=== PATIENT | female | born 1975 | race Caucasian/White ===

== ENCOUNTER 2020-10-26 15:46 | Observation (INO) | payer OTHER ==
[~2020-10-26] VITALS: Ht 149.9 cm; Wt 52.2 kg
[2020-10-26 20:50] LABS: HEMOGLOBIN 9.7 gm/dl (12.3-15.3); RED BLOOD COUNT 3.15 M/UL (4.00-5.10); WHITE BLOOD COUNT 5.4 K/UL (4.5-11.0)
[2020-10-26 21:06] LABS: BUN/CREATININE RATIO 32 (0-10)
[2020-10-27] MEDS ORDERED: NEURONTIN800 MG PO (09:30)
[2020-10-27] MEDS ORDERED: OXYCODONE HCL5 MG PO (09:31)
[2020-10-27] MEDS ORDERED: LANTUS100 UNIT/1 SC ×2 (09:32→09:33)
[2020-10-27] MEDS ORDERED: HUMALOG100 UNIT/1 SC (09:33)
[2020-10-27] MEDS ORDERED: PROTONIX20 MG PO (09:34)
== END 2020-10-27 18:06 | disposition home or self-care (01) ==
LOC: ER1 15:46 → CDU 21:10
PROVIDERS: Emergency Medicine; ADMIT Internal Medicine
DX: S72.115A Nondisplaced fracture of greater trochanter of left femur, initial encounter for closed fracture (principal); W18.30XA Fall on same level, unspecified, initial encounter; H54.7 Unspecified visual loss; Z20.822 Contact with and (suspected) exposure to COVID-19; E11.319 Type 2 diabetes mellitus with unspecified diabetic retinopathy without macular edema; E11.40 Type 2 diabetes mellitus with diabetic neuropathy, unspecified; I10 Essential (primary) hypertension; R26.9 Unspecified abnormalities of gait and mobility; F17.210 Nicotine dependence, cigarettes, uncomplicated; E11.36 Type 2 diabetes mellitus with diabetic cataract; H26.9 Unspecified cataract; Y93.89 Activity, other specified; Y92.89 Other specified places as the place of occurrence of the external cause; Y99.8 Other external cause status; Z88.8 Allergy status to other drugs, medicaments and biological substances; Z99.3 Dependence on wheelchair; Z98.1 Arthrodesis status; Z90.710 Acquired absence of both cervix and uterus
CPT/HCPCS: 71045; 73552; 73564; 73590; 73718; 80048; 85025; 93005; 96374; 99284; G0378; J2270; J2405; U0002

== ENCOUNTER 2021-03-08 22:26 | Emergency (ER) | payer OTHER ==
[~2021-03-08 22:26] MED LIST: HUMALOG100 UNIT/1 SC; LANTUS100 UNIT/1 SC; NEURONTIN800 MG PO; OXYCODONE HCL5 MG PO; PROTONIX20 MG PO
[2021-03-08 23:02] LABS: HEMOGLOBIN 12.6 gm/dl (12.3-15.3); RED BLOOD COUNT 3.99 M/UL (4.00-5.10); WHITE BLOOD COUNT 6.5 K/UL (4.5-11.0)
[2021-03-08 23:22] LABS: BUN/CREATININE RATIO 27 (0-10)
[2021-03-09] MEDS ORDERED: PHENERGAN 25 MG25 M1 PO (03:13)
[2021-03-09] MEDS ORDERED: OMNICEF 300 MG300 MG PO (03:13)
[2021-03-09] MEDS ORDERED: METRONIDAZOLE500 MG PO (03:13)
[2021-03-09] MEDS ORDERED: HYDROCODON-ACE1 EAC4 PO (03:13)
== END 2021-03-09 03:37 | disposition home or self-care (01) ==
LOC: ER1 22:26
PROVIDERS: Physician Assistant Medical
DX: R10.9 Unspecified abdominal pain (principal); R11.0 Nausea; E11.9 Type 2 diabetes mellitus without complications; Z79.4 Long term (current) use of insulin; Z90.710 Acquired absence of both cervix and uterus; Z88.5 Allergy status to narcotic agent; F17.210 Nicotine dependence, cigarettes, uncomplicated; Z88.8 Allergy status to other drugs, medicaments and biological substances
CPT/HCPCS: 80053; 81001; 82009; 82803; 82962; 83605; 85025; 96374; 96375; 96376; 99284; J2270; J2405

== ENCOUNTER → 2021-03-11 | Outpatient (CLI) | payer OTHER ==
[~2021-03-11] MED LIST changes: +HYDROCODON-ACE1 EAC4 PO; +METRONIDAZOLE500 MG PO; +OMNICEF 300 MG300 MG PO; +PHENERGAN 25 MG25 M1 PO
[2021-03-11 10:59] LABS: HEMOGLOBIN 12.7 gm/dl (12.3-15.3); RED BLOOD COUNT 4.08 M/UL (4.00-5.10); WHITE BLOOD COUNT 6.6 K/UL (4.5-11.0)
[2021-03-11 11:10] LABS: BUN/CREATININE RATIO 25 (0-10)
[2021-03-12 06:10] LABS: HEMOGLOBIN A1C 8.5 % (4.8-5.6)
== END ==
LOC: MRI 10:26
PROVIDERS: Family Medicine Addiction Medicine
DX: H47.10 Unspecified papilledema (principal)
CPT/HCPCS: 36415; 70553; 80048; 83036; 85025; 85652; A9577

== ENCOUNTER 2021-03-14 22:41 | Emergency (ER) | payer OTHER ==
[2021-03-15 01:03] LABS: HEMOGLOBIN 13.5 gm/dl (12.3-15.3); RED BLOOD COUNT 4.37 M/UL (4.00-5.10); WHITE BLOOD COUNT 8.9 K/UL (4.5-11.0)
[2021-03-15 01:24] LABS: BUN/CREATININE RATIO 22 (0-10)
[2021-03-15] MEDS ORDERED: PHENERGAN 25 MG25 M1 PO (03:22)
[2021-03-15] MEDS ORDERED: MOBIC15 MG PO (03:22)
[2021-03-15] MEDS ORDERED: K-TAB ER20 MEQ PO (03:24)
[2021-03-15] MEDS ORDERED: DIFLUCAN150 MG PO (03:32)
== END 2021-03-15 03:40 | disposition home or self-care (01) ==
LOC: ER1 22:41
PROVIDERS: Physician Assistant
DX: E11.65 Type 2 diabetes mellitus with hyperglycemia (principal); E87.6 Hypokalemia; F17.200 Nicotine dependence, unspecified, uncomplicated; Z79.4 Long term (current) use of insulin; I10 Essential (primary) hypertension; Z88.8 Allergy status to other drugs, medicaments and biological substances
CPT/HCPCS: 74018; 80053; 81001; 82962; 83690; 85025; 96374; 96375; 99284; J2270; J2550

== ENCOUNTER 2021-03-31 17:10 | Emergency (ER) | payer OTHER ==
[~2021-03-31 17:10] MED LIST changes: +DIFLUCAN150 MG PO; +K-TAB ER20 MEQ PO; +MOBIC15 MG PO
== END 2021-03-31 19:10 | disposition left against medical advice (07) ==
LOC: ER1 17:10
DX: Z53.21 Procedure and treatment not carried out due to patient leaving prior to being seen by health care provider (principal)

== ENCOUNTER 2021-04-21 23:22 | Emergency (ER) | payer OTHER ==
[2021-04-22 00:05] LABS: HEMOGLOBIN 10.2 gm/dl (12.3-15.3); RED BLOOD COUNT 3.37 M/UL (4.00-5.10); WHITE BLOOD COUNT 6.3 K/UL (4.5-11.0)
[2021-04-22 00:27] LABS: BUN/CREATININE RATIO 19 (0-10)
[2021-04-22 06:00] LABS: BUN/CREATININE RATIO 20 (0-10)
[2021-04-22 11:33] LABS: HEMOGLOBIN 9.9 gm/dl (12.3-15.3); RED BLOOD COUNT 3.29 M/UL (4.00-5.10); WHITE BLOOD COUNT 5.4 K/UL (4.5-11.0)
[2021-04-22 11:54] LABS: BUN/CREATININE RATIO 18 (0-10)
== END 2021-04-22 12:38 | disposition home or self-care (01) ==
LOC: ER1 23:22
PROVIDERS: Family Medicine; Physician Assistant
DX: E87.6 Hypokalemia (principal); R10.84 Generalized abdominal pain; F17.210 Nicotine dependence, cigarettes, uncomplicated; E11.9 Type 2 diabetes mellitus without complications; Z79.4 Long term (current) use of insulin; Z88.8 Allergy status to other drugs, medicaments and biological substances
CPT/HCPCS: 80048; 80053; 83690; 83735; 83880; 85025; 96374; 96375; 96376; 99284; J1885; J2270; J2550; J3480; Q9967

== ENCOUNTER 2021-04-27 22:24 | Emergency (ER) | payer OTHER ==
[~2021-04-27 22:24] MED LIST changes: -HUMALOG100 UNIT/1 SC; +HUMALOG100 UNIT/3 SQ; +LANTUS SOL100 UNIT/1 SQ; -LANTUS100 UNIT/1 SC; +LANTUS100 UNIT/1 SQ
[2021-04-27 23:24] LABS: HEMOGLOBIN 11.8 gm/dl (12.3-15.3); RED BLOOD COUNT 3.89 M/UL (4.00-5.10)
[2021-04-28 00:03] LABS: BUN/CREATININE RATIO 16 (0-10)
[2021-04-28 01:36] LABS: HEMOGLOBIN 11.1 gm/dl (12.3-15.3); RED BLOOD COUNT 3.65 M/UL (4.00-5.10); WHITE BLOOD COUNT 5.3 K/UL (4.5-11.0)
[2021-04-28 05:55] LABS: BUN/CREATININE RATIO 18 (0-10)
[2021-04-28] MEDS ORDERED: PHENERGAN 25 MG25 M1 PO (06:32)
== END 2021-04-28 06:55 | disposition home or self-care (01) ==
LOC: ER1 22:24
PROVIDERS: Family Medicine
DX: K52.9 Noninfective gastroenteritis and colitis, unspecified (principal); E87.6 Hypokalemia; R11.2 Nausea with vomiting, unspecified
CPT/HCPCS: 80048; 80053; 82550; 82553; 83605; 83690; 83735; 84484; 85025; 85610; 96365; 96366; 96375; 96376; 99284; J2270; J2550; J3480; Q9967

== ENCOUNTER 2021-04-30 00:12 | Observation (INO) | payer OTHER ==
[~2021-04-30] VITALS: Ht 149.9 cm; Wt 54.4 kg
[2021-04-30 02:08] LABS: HEMOGLOBIN 11.3 gm/dl (12.3-15.3); RED BLOOD COUNT 3.69 M/UL (4.00-5.10); WHITE BLOOD COUNT 4.2 K/UL (4.5-11.0)
[2021-04-30 02:28] LABS: BUN/CREATININE RATIO 17 (0-10)
[2021-05-01 06:37] LABS: HEMOGLOBIN 9.5 gm/dl (12.3-15.3); WHITE BLOOD COUNT 4.8 K/UL (4.5-11.0)
[2021-05-01 06:40] LABS: RED BLOOD COUNT 3.14 M/UL (4.00-5.10)
[2021-05-01 06:56] LABS: BUN/CREATININE RATIO 16 (0-10)
[2021-05-01] MEDS ORDERED: FLAGYL 250 MG250 MG PO (15:33)
[2021-05-01] MEDS ORDERED: CIPRO500 MG PO (15:33)
--- NOTE | 2021-05-01 16:51 | NUR ---
05/01/21 5069 DISCUSSED WITH LAWANDA MINAYAGOLD PLATER UNABLE TO GET IN TOUCH WITH FAMILY TO COME GET HER, HE OK'D [facility] TO COME TAKE PATIENT HOME, PT AGREEABLE WITH THIS
== END 2021-05-01 17:54 | disposition home or self-care (01) ==
LOC: ER1 00:12 → CDU 06:08 → CCU 06:08 → CDU 06:08 → CCU 10:12
PROVIDERS: Internal Medicine; Physician Assistant; ADMIT Internal Medicine
DX: K52.9 Noninfective gastroenteritis and colitis, unspecified (principal); E11.42 Type 2 diabetes mellitus with diabetic polyneuropathy; E11.43 Type 2 diabetes mellitus with diabetic autonomic (poly)neuropathy; E83.42 Hypomagnesemia; I10 Essential (primary) hypertension; F17.210 Nicotine dependence, cigarettes, uncomplicated; E88.09 Other disorders of plasma-protein metabolism, not elsewhere classified; R18.8 Other ascites; Z79.4 Long term (current) use of insulin; Z20.822 Contact with and (suspected) exposure to COVID-19; Z90.49 Acquired absence of other specified parts of digestive tract
CPT/HCPCS: 36415; 80048; 80053; 81001; 82962; 83036; 83690; 83735; 84132; 85025; 93971; 96374; 96375; 96376; 99285; C9113; G0378; J1170; J1650; J1956; J2270; J2550; J3480; Q9967; U0002

== ENCOUNTER 2021-05-03 03:51 | Emergency (ER) | payer OTHER ==
[~2021-05-03 03:51] MED LIST changes: +CIPRO500 MG PO; +FLAGYL 250 MG250 MG PO
[2021-05-03 04:14] LABS: WHITE BLOOD COUNT 4.6 K/UL (4.5-11.0)
[2021-05-03 04:20] LABS: HEMOGLOBIN 11.7 gm/dl (12.3-15.3); RED BLOOD COUNT 3.84 M/UL (4.00-5.10)
[2021-05-03 04:41] LABS: BUN/CREATININE RATIO 14 (0-10)
[2021-05-03] MEDS ORDERED: ACIDOPHILUS PR1 EAC2 PO (05:59)
[2021-05-03] MEDS ORDERED: PROMETHAZINE HC25 MG PR (05:59)
== END 2021-05-03 08:15 | disposition home or self-care (01) ==
LOC: ER1 03:51
PROVIDERS: Physician Assistant
DX: R10.9 Unspecified abdominal pain (principal); E11.9 Type 2 diabetes mellitus without complications; Z90.710 Acquired absence of both cervix and uterus; Z88.8 Allergy status to other drugs, medicaments and biological substances; Z90.49 Acquired absence of other specified parts of digestive tract; F17.210 Nicotine dependence, cigarettes, uncomplicated
CPT/HCPCS: 80053; 81001; 82962; 83690; 85025; 93005; 96374; 96375; 99284; J1170; J2550; J3480; Q9967

== ENCOUNTER 2021-05-06 00:26 | Emergency (ER) | payer OTHER ==
[~2021-05-06 00:26] MED LIST changes: +ACIDOPHILUS PR1 EAC2 PO; +PROMETHAZINE HC25 MG PR
[2021-05-06 00:54] LABS: HEMOGLOBIN 10.1 gm/dl (12.3-15.3)
[2021-05-06 00:55] LABS: RED BLOOD COUNT 3.33 M/UL (4.00-5.10); WHITE BLOOD COUNT 6.2 K/UL (4.5-11.0)
[2021-05-06 01:21] LABS: BUN/CREATININE RATIO 15 (0-10)
[2021-05-06] MEDS ORDERED: IBUPROFEN600 MG PO (04:08)
[2021-05-06] MEDS ORDERED: GLUCOPHAGE 500500 MG PO (04:12)
== END 2021-05-06 05:00 | disposition home or self-care (01) ==
LOC: ER1 00:26
DX: R07.9 Chest pain, unspecified (principal); M79.602 Pain in left arm; E11.65 Type 2 diabetes mellitus with hyperglycemia; I10 Essential (primary) hypertension; Z87.19 Personal history of other diseases of the digestive system; F17.210 Nicotine dependence, cigarettes, uncomplicated; Z88.8 Allergy status to other drugs, medicaments and biological substances; Z79.82 Long term (current) use of aspirin
CPT/HCPCS: 71046; 80053; 82550; 82553; 82962; 84484; 85025; 93005; 96374; 96375; 99285; J1885; J2765

== ENCOUNTER 2021-05-08 07:42 | Inpatient (IN) | payer OTHER ==
[~2021-05-08] VITALS: Ht 149.9 cm; Wt 54.4 kg
[~2021-05-08 07:42] MED LIST changes: +GLUCOPHAGE 500500 MG PO; +IBUPROFEN600 MG PO
[2021-05-08 10:07] LABS: GLUCOSE,CSF 206 mg/dL (50-80); TOTAL PROTEIN,CSF 42 mg/dL (20-45)
[2021-05-08 10:20] LABS: WBC (AUTOMATED 1 10^3 (0-5); WBC (AUTOMATED 2 10^3 (0-5)
[2021-05-08 14:54] LABS: HEMOGLOBIN 10.3 gm/dl (12.3-15.3); RED BLOOD COUNT 3.38 M/UL (4.00-5.10); WHITE BLOOD COUNT 5.7 K/UL (4.5-11.0)
[2021-05-08 15:29] LABS: BUN/CREATININE RATIO 16 (0-10)
--- NOTE | 2021-05-08 18:21 | NUR ---
RECEIVED PATIENT TO 5122 VIA W/C TRANSPORT. PATIENT AAOX3. RESP JUAN AND NON LABORED. LUNGS CLEAR. ABD SOFT AND NON DISTENDED. BOWEL SOUNDS +X4. SKIN WDI. BANDAID NOTED TO LOWER LUMBAR R/T RECENT SPINAL TAP. PATIENT C/O HEADACHE 10/15. JUST RECEIVED VICODIN AND DILAUDID IN OBS. #20 IV TO RIGHT HAND INTACT. NS@125 STARTED. NO OTHER C/O NOTED. NO DISTRESS NOTED. WCTM.
[2021-05-09 13:15] LABS: CSF IGG INDEX 0.6 (0.0-0.7); IMMUNOGLOBULIN G, QN, SERUM 227 mg/dL (586-1602)
--- NOTE | 2021-05-10 17:07 | NUR ---
PATIENTS BS IS 59. PATIENT IS AA0X3. FEEDING SELF DINNER. ADVISED PATIENT I WOULD GIVE HER GLUCOSE GEL OR D50 IVP AND PATIENT REFUSED. PATIENT REQUESTED 2 APPLE JUICES.
--- NOTE | 2021-05-10 17:38 | NUR ---
REPEAT BS 81. PATIENT AAOX3.
--- NOTE | 2021-05-10 23:25 | NUR ---
APPROX 2030 WHEN ADMINSTERING PT MEDICATIONS. PT ASKED FOR PAIN MEDICATIONS. I OFFERED HYDROCODONE AND FIORCET TO PT. PT REFUSED BOTH OF THESE AND STATED SHE NEEDED SOMETHING STONGER. ALREADY IN REPORT GIVEN AT [facility] WAS TOLD HAD D/C TORDOL AND DILAUDID TODAY. REMINDED PT OF THIS AND SHE WANTED ME TO CALL ANOTHER DR. I TOLD HER I COULD CALL STACEY LE. APROX [address] HUGO NOTIFIED ABOUT PT AND STATED ABOVE AND HE STATES SHE WILL NEED TO SPEAK WITH HER PRIMARY MD ABOUT HER PAIN MEDICATIONS. APROX 2138 WENT AND NOTIFIED PT ABOUT THIS AND SHE STATED SHE WOULD TAKE THE HYDROCODONE PILL.
[2021-05-11 04:21] LABS: HEMOGLOBIN 9.1 gm/dl (12.3-15.3); RED BLOOD COUNT 3.03 M/UL (4.00-5.10); WHITE BLOOD COUNT 5.5 K/UL (4.5-11.0)
[2021-05-11 04:35] LABS: BUN/CREATININE RATIO 40 (0-10)
--- NOTE | 2021-05-12 09:56 | NUR ---
informed Dr Goins of neurology will be available on wednesday. he acknowledged
--- NOTE | 2021-05-12 15:07 | NUR ---
reported to dr. peace patient b/p 203/ and retaken manually of 199/106 amd received order to d/c the IV. and retake b/p again.
--- NOTE | 2021-05-12 16:57 | NUR ---
reported to dr. peace patient b/p elevated and pateint asking for pain medicine. dr. peace acknowledged and will order iv pain medicine
[2021-05-12 18:11] LABS: MYELIN BASIC PROTEIN, CSF 4.6 ng/mL (0.0-3.7)
[2021-05-14] MEDS ORDERED: AMITRIPTYLINE H25 MG PO (12:50)
[2021-05-14] MEDS ORDERED: TAB-A-VITE TA400 MC1 PO (12:50)
[2021-05-14] MEDS ORDERED: VITAMIN D21250 MCG PO (12:50)
== END 2021-05-14 15:32 | disposition home or self-care (01) | DRG 103 ==
LOC: RAD 07:42 → M/S 07:42 → RAD 08:00 → CCU 13:49 → M/S 16:03 → RAD 16:04 → M/S 16:04
PROVIDERS: Internal Medicine; Psychiatry & Neurology Neurology; ADMIT Internal Medicine Infectious Disease
PROC: 009U3ZX Drainage of Spinal Canal, Percutaneous Approach, Diagnostic (ICD-10-PCS; principal; 2021-05-08)
PROC: B01B1ZZ Fluoroscopy of Spinal Cord using Low Osmolar Contrast (ICD-10-PCS; 2021-05-08)
DX: G97.1 Other reaction to spinal and lumbar puncture (principal); Y84.4 Aspiration of fluid as the cause of abnormal reaction of the patient, or of later complication, without mention of misadventure at the time of the procedure; G35 Multiple sclerosis; G43.909 Migraine, unspecified, not intractable, without status migrainosus; Z20.822 Contact with and (suspected) exposure to COVID-19; I10 Essential (primary) hypertension; F17.210 Nicotine dependence, cigarettes, uncomplicated; F32.A Depression, unspecified; E11.42 Type 2 diabetes mellitus with diabetic polyneuropathy; D50.9 Iron deficiency anemia, unspecified; K66.0 Peritoneal adhesions (postprocedural) (postinfection); E11.43 Type 2 diabetes mellitus with diabetic autonomic (poly)neuropathy; E11.65 Type 2 diabetes mellitus with hyperglycemia; K31.84 Gastroparesis; E11.319 Type 2 diabetes mellitus with unspecified diabetic retinopathy without macular edema; E87.6 Hypokalemia; E88.09 Other disorders of plasma-protein metabolism, not elsewhere classified; E55.9 Vitamin D deficiency, unspecified; Z76.5 Malingerer [conscious simulation]; Z79.4 Long term (current) use of insulin; Z98.42 Cataract extraction status, left eye; Z98.41 Cataract extraction status, right eye; Z90.49 Acquired absence of other specified parts of digestive tract; Z90.710 Acquired absence of both cervix and uterus; Z80.0 Family history of malignant neoplasm of digestive organs; Z83.79 Family history of other diseases of the digestive system; Z88.8 Allergy status to other drugs, medicaments and biological substances; Z91.011 Allergy to milk products
CPT/HCPCS: 36415; 80048; 80053; 82040; 82607; 82728; 82746; 82784; 82945; 82962; 83540; 83550; 83735; 83873; 83916; 83970; 84100; 84132; 84157; 84443; 85025; 87015; 87070; 87116; 87205; 87210; 89051; 97116; 97161; G0378; J1170; J1885; J2550; J3475; J7070

== ENCOUNTER 2021-05-23 00:37 | Emergency (ER) | payer OTHER ==
[~2021-05-23 00:37] MED LIST changes: +AMITRIPTYLINE H25 MG PO; +MELOXICAM10 MG PO; +TAB-A-VITE TA400 MC1 PO; +VITAMIN D21250 MCG PO
[2021-05-23 02:12] LABS: HEMOGLOBIN 11.5 gm/dl (12.3-15.3); RED BLOOD COUNT 3.87 M/UL (4.00-5.10); WHITE BLOOD COUNT 5.5 K/UL (4.5-11.0)
[2021-05-23 02:41] LABS: BUN/CREATININE RATIO 19 (0-10)
== END 2021-05-23 04:40 | disposition home or self-care (01) ==
LOC: ER1 00:37
PROVIDERS: Physician Assistant
DX: N39.0 Urinary tract infection, site not specified (principal); R10.31 Right lower quadrant pain; F17.210 Nicotine dependence, cigarettes, uncomplicated; E11.9 Type 2 diabetes mellitus without complications; Z90.710 Acquired absence of both cervix and uterus
CPT/HCPCS: 80053; 81001; 82009; 82150; 82800; 83605; 83690; 84703; 85025; 87086; 96374; 99284; J1885

== ENCOUNTER 2021-06-02 13:39 | Emergency (ER) | payer OTHER ==
[2021-06-02 14:41] LABS: HEMOGLOBIN 11.6 gm/dl (12.3-15.3); RED BLOOD COUNT 3.96 M/UL (4.00-5.10); WHITE BLOOD COUNT 5.8 K/UL (4.5-11.0)
[2021-06-02 15:57] LABS: BUN/CREATININE RATIO 19 (0-10)
[2021-06-02] MEDS ORDERED: PYRIDIUM200 MG PO (16:34)
[2021-06-02] MEDS ORDERED: BENTYL 20MG TAB20 MG PO (16:34)
[2021-06-02] MEDS ORDERED: HYDROXYZINE HCL25 MG PO (16:34)
[2021-06-02] MEDS ORDERED: MOBIC7.5 MG PO (16:34)
== END 2021-06-02 16:56 | disposition home or self-care (01) ==
LOC: ER1 13:39
PROVIDERS: Student in an Organized Health Care Education/Training Program
DX: R10.9 Unspecified abdominal pain (principal); R10.817 Generalized abdominal tenderness; E11.9 Type 2 diabetes mellitus without complications; F17.210 Nicotine dependence, cigarettes, uncomplicated
CPT/HCPCS: 80053; 81001; 83690; 85025; 87086; 96372; 96374; 96375; 96376; 99284; J1885; J2270; J2550

== ENCOUNTER 2021-06-05 00:02 | Emergency (ER) | payer OTHER ==
[~2021-06-05 00:02] MED LIST changes: +BENTYL 20MG TAB20 MG PO; +HYDROXYZINE HCL25 MG PO; +MOBIC7.5 MG PO; +PYRIDIUM200 MG PO
== END 2021-06-05 12:05 | disposition home or self-care (01) ==
LOC: ER1 00:02
DX: M25.552 Pain in left hip (principal); E11.9 Type 2 diabetes mellitus without complications; F17.200 Nicotine dependence, unspecified, uncomplicated; Z88.8 Allergy status to other drugs, medicaments and biological substances; W06.XXXA Fall from bed, initial encounter; Y92.009 Unspecified place in unspecified non-institutional (private) residence as the place of occurrence of the external cause
CPT/HCPCS: 73502; 73700; 73721; 96372; 99284; J1885

== ENCOUNTER 2021-06-15 07:07 | Emergency (ER) | payer OTHER ==
[2021-06-15 08:28] LABS: HEMOGLOBIN 11.6 gm/dl (12.3-15.3); RED BLOOD COUNT 3.87 M/UL (4.00-5.10); WHITE BLOOD COUNT 5.2 K/UL (4.5-11.0)
[2021-06-15 08:54] LABS: BUN/CREATININE RATIO 22 (0-10)
[2021-06-15] MEDS ORDERED: KLOR-CON M2020 MEQ PO (09:52)
== END 2021-06-15 09:59 | disposition home or self-care (01) ==
LOC: ER1 07:07
PROVIDERS: Physician Assistant
DX: E87.6 Hypokalemia (principal); E11.65 Type 2 diabetes mellitus with hyperglycemia; R10.10 Upper abdominal pain, unspecified; G89.29 Other chronic pain; F17.200 Nicotine dependence, unspecified, uncomplicated; I10 Essential (primary) hypertension; Z79.4 Long term (current) use of insulin; Z88.8 Allergy status to other drugs, medicaments and biological substances
CPT/HCPCS: 71045; 74018; 80053; 83605; 83690; 83735; 85025; 93005; 96374; 96375; 99284; J0780; J1885

== ENCOUNTER 2021-06-22 07:07 | Emergency (ER) | payer OTHER ==
[~2021-06-22 07:07] MED LIST changes: +KLOR-CON M2020 MEQ PO
[2021-06-22 08:35] LABS: HEMOGLOBIN 11.8 gm/dl (12.3-15.3)
[2021-06-22 09:00] LABS: BUN/CREATININE RATIO 37 (0-10)
[2021-06-22] MEDS ORDERED: PHENERGAN 25 MG25 M1 PO (11:12)
[2021-06-22] MEDS ORDERED: MACROBID 100 M100 MG PO (12:26)
== END 2021-06-22 12:40 | disposition home or self-care (01) ==
LOC: ER1 07:07
PROVIDERS: Physician Assistant
DX: N39.0 Urinary tract infection, site not specified (principal); E87.6 Hypokalemia; I10 Essential (primary) hypertension; E11.9 Type 2 diabetes mellitus without complications; Z90.710 Acquired absence of both cervix and uterus; F17.200 Nicotine dependence, unspecified, uncomplicated; Z88.8 Allergy status to other drugs, medicaments and biological substances
CPT/HCPCS: 80053; 81001; 83690; 85025; 96374; 96375; 99284; J1885; J2270; J2550; J7030; Q9967

== ENCOUNTER 2021-06-23 19:03 | Emergency (ER) | payer OTHER ==
[~2021-06-23 19:03] MED LIST changes: +MACROBID 100 M100 MG PO
[2021-06-23 20:03] LABS: HEMOGLOBIN 10.3 gm/dl (12.3-15.3); WHITE BLOOD COUNT 4.8 K/UL (4.5-11.0)
[2021-06-23 20:04] LABS: RED BLOOD COUNT 3.46 M/UL (4.00-5.10)
[2021-06-23 20:56] LABS: BUN/CREATININE RATIO 24 (0-10)
[2021-06-24] MEDS ORDERED: PHENERGAN 25 MG25 M1 PO (04:36)
[2021-06-24] MEDS ORDERED: BENTYL 20MG TAB20 MG PO (04:36)
== END 2021-06-24 05:44 | disposition home or self-care (01) ==
LOC: ER1 19:03
PROVIDERS: Family Medicine
DX: R10.11 Right upper quadrant pain (principal); R11.2 Nausea with vomiting, unspecified; E11.9 Type 2 diabetes mellitus without complications; I10 Essential (primary) hypertension; F17.210 Nicotine dependence, cigarettes, uncomplicated; Z88.8 Allergy status to other drugs, medicaments and biological substances
CPT/HCPCS: 72129; 72132; 80053; 85025; 85652; 86140; 96374; 96375; 96376; 99284; J2270; J2765; J7030; Q9967

== ENCOUNTER 2021-07-02 18:57 | Emergency (ER) | payer OTHER ==
[2021-07-02 20:06] LABS: HEMOGLOBIN 10.2 gm/dl (12.3-15.3); RED BLOOD COUNT 3.42 M/UL (4.00-5.10); WHITE BLOOD COUNT 4.8 K/UL (4.5-11.0)
[2021-07-02 20:39] LABS: BUN/CREATININE RATIO 23 (0-10)
[2021-07-03 00:41] LABS: BUN/CREATININE RATIO 25 (0-10)
== END 2021-07-03 04:44 | disposition home or self-care (01) ==
LOC: ER1 18:57
PROVIDERS: Family Medicine
DX: E10.43 Type 1 diabetes mellitus with diabetic autonomic (poly)neuropathy (principal); K31.84 Gastroparesis; E87.6 Hypokalemia
CPT/HCPCS: 80048; 80053; 82150; 82550; 82553; 83605; 83690; 84484; 85025; 96374; 96375; 99284; J2270; J2550; J3480

== ENCOUNTER 2021-07-10 19:30 | Emergency (ER) | payer OTHER ==
[2021-07-10 21:28] LABS: HEMOGLOBIN 9.9 gm/dl (12.3-15.3); RED BLOOD COUNT 3.28 M/UL (4.00-5.10)
[2021-07-10 21:58] LABS: BUN/CREATININE RATIO 21 (0-10)
[2021-07-11] MEDS ORDERED: POTASSIUM CHLO20 ME1 PO (01:51)
== END 2021-07-11 02:35 | disposition home or self-care (01) ==
LOC: ER1 19:30
PROVIDERS: Family Medicine
DX: S06.9X9A Unspecified intracranial injury with loss of consciousness of unspecified duration, initial encounter (principal); S70.02XA Contusion of left hip, initial encounter; I10 Essential (primary) hypertension; E11.40 Type 2 diabetes mellitus with diabetic neuropathy, unspecified; E87.6 Hypokalemia; E11.65 Type 2 diabetes mellitus with hyperglycemia; F17.200 Nicotine dependence, unspecified, uncomplicated; Z87.81 Personal history of (healed) traumatic fracture; W20.8XXA Other cause of strike by thrown, projected or falling object, initial encounter; Y92.009 Unspecified place in unspecified non-institutional (private) residence as the place of occurrence of the external cause
CPT/HCPCS: 70450; 71045; 72125; 72131; 72192; 73502; 80053; 81001; 82550; 82553; 82962; 83735; 84484; 85025; 93005; 96374; 96375; 99284; J2270; J2405

== ENCOUNTER 2021-08-07 06:04 | Inpatient (IN) | payer OTHER ==
[~2021-08-07] VITALS: Ht 149.9 cm; Wt 49.9 kg
[~2021-08-07 06:04] MED LIST changes: +HUMALOG100 UNIT/3 SC; -HUMALOG100 UNIT/3 SQ; +POTASSIUM CHLO20 ME1 PO
[2021-08-07 06:31] LABS: HEMOGLOBIN 10.8 gm/dl (12.3-15.3); RED BLOOD COUNT 3.65 M/UL (4.00-5.10); WHITE BLOOD COUNT 5.5 K/UL (4.5-11.0)
[2021-08-07 06:59] LABS: BUN/CREATININE RATIO 22 (0-10)
[2021-08-07] MEDS ORDERED: LISINOPRIL10 MG PO (12:52)
[2021-08-08 01:54] LABS: HEMOGLOBIN 10.6 gm/dl (12.3-15.3); RED BLOOD COUNT 3.62 M/UL (4.00-5.10); WHITE BLOOD COUNT 6.2 K/UL (4.5-11.0)
[2021-08-08 02:19] LABS: BUN/CREATININE RATIO 19 (0-10)
[2021-08-09 06:54] LABS: BUN/CREATININE RATIO 15 (0-10)
[2021-08-10 07:59] LABS: HEMOGLOBIN 8.9 gm/dl (12.3-15.3)
[2021-08-10 08:00] LABS: BUN/CREATININE RATIO 14 (0-10)
[2021-08-10 08:13] LABS: RED BLOOD COUNT 3.12 M/UL (4.00-5.10); WHITE BLOOD COUNT 3.9 K/UL (4.5-11.0)
[2021-08-13 06:11] LABS: HEMOGLOBIN 8.8 gm/dl (12.3-15.3); RED BLOOD COUNT 2.96 M/UL (4.00-5.10); WHITE BLOOD COUNT 4.7 K/UL (4.5-11.0)
[2021-08-13 06:28] LABS: BUN/CREATININE RATIO 23 (0-10)
[2021-08-14 06:45] LABS: RED BLOOD COUNT 2.84 M/UL (4.00-5.10)
[2021-08-14 06:49] LABS: WHITE BLOOD COUNT 3.4 K/UL (4.5-11.0)
[2021-08-14] MEDS ORDERED: LANTUS SOL100 UNIT/1 SQ (15:36)
[2021-08-14] MEDS ORDERED: CATAPRES 0.1MG0.1 MG PO (17:11)
[2021-08-14] MEDS ORDERED: LISINOPRIL10 MG PO (17:11)
== END 2021-08-14 18:15 | disposition home or self-care (01) | DRG 74 ==
LOC: ER1 06:04 → CDU 09:18 → MED SURG 4 09:18 → CDU 09:18 → MED SURG 4 17:59
PROVIDERS: Family Medicine; Internal Medicine; Physician Assistant Medical; ADMIT Internal Medicine
DX: E11.43 Type 2 diabetes mellitus with diabetic autonomic (poly)neuropathy (principal); R44.3 Hallucinations, unspecified; E11.65 Type 2 diabetes mellitus with hyperglycemia; Z20.822 Contact with and (suspected) exposure to COVID-19; E88.09 Other disorders of plasma-protein metabolism, not elsewhere classified; F41.9 Anxiety disorder, unspecified; F32.A Depression, unspecified; G47.00 Insomnia, unspecified; K21.9 Gastro-esophageal reflux disease without esophagitis; E11.42 Type 2 diabetes mellitus with diabetic polyneuropathy; E11.319 Type 2 diabetes mellitus with unspecified diabetic retinopathy without macular edema; E87.6 Hypokalemia; K31.84 Gastroparesis; H53.8 Other visual disturbances; F17.210 Nicotine dependence, cigarettes, uncomplicated; Z79.4 Long term (current) use of insulin; Z90.49 Acquired absence of other specified parts of digestive tract; Z80.0 Family history of malignant neoplasm of digestive organs; Z83.79 Family history of other diseases of the digestive system; Z98.42 Cataract extraction status, left eye; Z98.41 Cataract extraction status, right eye; Z98.890 Other specified postprocedural states; Z90.710 Acquired absence of both cervix and uterus
CPT/HCPCS: 36415; 80048; 80053; 82962; 83036; 83690; 83735; 84132; 85025; 85027; 93005; 96374; 96375; 96376; 97161; 99285; C9113; G0378; J0360; J2270; J2405; J2550; J3480; J7050

== ENCOUNTER 2021-08-18 23:26 | Emergency (ER) | payer OTHER ==
[~2021-08-18 23:26] MED LIST changes: +CATAPRES 0.1MG0.1 MG PO; +LISINOPRIL10 MG PO
[2021-08-19 00:49] LABS: RED BLOOD COUNT 3.85 M/UL (4.00-5.10); WHITE BLOOD COUNT 4.4 K/UL (4.5-11.0)
[2021-08-19 00:53] LABS: HEMOGLOBIN 11.3 gm/dl (12.3-15.3)
[2021-08-19 01:09] LABS: BUN/CREATININE RATIO 17 (0-10)
== END 2021-08-19 14:10 | disposition home or self-care (01) ==
LOC: ER1 23:26
PROVIDERS: Student in an Organized Health Care Education/Training Program
DX: E11.43 Type 2 diabetes mellitus with diabetic autonomic (poly)neuropathy (principal); I10 Essential (primary) hypertension; Z90.710 Acquired absence of both cervix and uterus; F17.210 Nicotine dependence, cigarettes, uncomplicated
CPT/HCPCS: 71045; 80053; 82550; 82553; 82962; 84484; 85025; 93005; 96374; 96375; 96376; 99284; J1170; J2270; J2550

== ENCOUNTER 2021-08-20 16:40 | Emergency (ER) | payer OTHER ==
[2021-08-20 22:47] LABS: HEMOGLOBIN 11.8 gm/dl (12.3-15.3); RED BLOOD COUNT 4.1 M/UL (4.00-5.10)
[2021-08-20 22:53] LABS: WHITE BLOOD COUNT 6.7 K/UL (4.5-11.0)
[2021-08-20 23:21] LABS: BUN/CREATININE RATIO 12 (0-10)
[2021-08-21] MEDS ORDERED: KLOR-CON M2020 MEQ PO (06:19)
== END 2021-08-21 06:54 | disposition home or self-care (01) ==
LOC: ER1 16:40
PROVIDERS: Physician Assistant
DX: E87.6 Hypokalemia (principal); E11.43 Type 2 diabetes mellitus with diabetic autonomic (poly)neuropathy; K31.84 Gastroparesis; I10 Essential (primary) hypertension; F17.200 Nicotine dependence, unspecified, uncomplicated
CPT/HCPCS: 80053; 81001; 82550; 82553; 82962; 83690; 83735; 84132; 84484; 85025; 93005; 96374; 96375; 96376; 99284; J2270; J2550; J3475; J3480

== ENCOUNTER 2021-08-23 20:42 | Emergency (ER) | payer OTHER ==
[2021-08-23 21:48] LABS: HEMOGLOBIN 12.1 gm/dl (12.3-15.3); RED BLOOD COUNT 4.15 M/UL (4.00-5.10); WHITE BLOOD COUNT 5.9 K/UL (4.5-11.0)
[2021-08-23 22:07] LABS: BUN/CREATININE RATIO 14 (0-10)
== END 2021-08-24 01:00 | disposition left against medical advice (07) ==
LOC: ER1 20:42
PROVIDERS: Student in an Organized Health Care Education/Training Program
DX: E11.65 Type 2 diabetes mellitus with hyperglycemia (principal); R00.0 Tachycardia, unspecified; I10 Essential (primary) hypertension; Z90.710 Acquired absence of both cervix and uterus; Z88.8 Allergy status to other drugs, medicaments and biological substances
CPT/HCPCS: 80053; 81001; 82009; 82800; 85025; 87086; 93005; 96374; 96375; 99285; J1885; J2765; J3480

== ENCOUNTER 2021-08-25 16:34 | Emergency (ER) | payer OTHER | END 2021-08-25 21:40 | disposition home or self-care (01) | LOC: ER1 16:34 | DX: S32.592A Other specified fracture of left pubis, initial encounter for closed fracture (principal); W06.XXXA Fall from bed, initial encounter | CPT/HCPCS: 72100; 73502; 99283 ==

== ENCOUNTER 2021-08-27 01:59 | Emergency (ER) | payer OTHER ==
[~2021-08-27 01:59] MED LIST changes: -HUMALOG100 UNIT/3 SC; +HUMALOG100 UNIT/3 SQ
[2021-08-27 03:15] LABS: HEMOGLOBIN 10.8 gm/dl (12.3-15.3); RED BLOOD COUNT 3.64 M/UL (4.00-5.10); WHITE BLOOD COUNT 6.1 K/UL (4.5-11.0)
[2021-08-27] MEDS ORDERED: KLOR-CON 1010 MEQ PO (12:45)
== END 2021-08-27 12:50 | disposition home or self-care (01) ==
LOC: ER1 01:59
PROVIDERS: Emergency Medicine; Family Medicine
DX: E87.6 Hypokalemia (principal); E11.9 Type 2 diabetes mellitus without complications; F17.200 Nicotine dependence, unspecified, uncomplicated
CPT/HCPCS: 80048; 80053; 82550; 82553; 83880; 84484; 85025; 96374; 96375; 99284; J2270; J2550; J3480

== ENCOUNTER 2021-08-30 01:37 | Inpatient (IN) | payer OTHER ==
[~2021-08-30] VITALS: Ht 149.9 cm; Wt 49.9 kg
[~2021-08-30 01:37] MED LIST changes: +KLOR-CON 1010 MEQ PO
[2021-08-30 03:22] LABS: HEMOGLOBIN 9.4 gm/dl (12.3-15.3); WHITE BLOOD COUNT 5.3 K/UL (4.5-11.0)
[2021-08-30 03:27] LABS: RED BLOOD COUNT 3.18 M/UL (4.00-5.10)
[2021-08-30 03:45] LABS: BUN/CREATININE RATIO 27 (0-10)
[2021-08-30] MEDS ORDERED: LANTUS SOL100 UNIT/1 SQ (10:59)
[2021-08-30] MEDS ORDERED: LACTULOSE10 GM/15 M PO (11:00)
[2021-08-30 11:05] LABS: BUN/CREATININE RATIO 22 (0-10)
[2021-08-31 06:49] LABS: HEMOGLOBIN 7.5 gm/dl (12.3-15.3)
[2021-08-31 06:52] LABS: RED BLOOD COUNT 2.65 M/UL (4.00-5.10)
--- NOTE | 2021-08-31 11:53 | NUR ---
requested to dr. berg patient requesting for morphine and he has spoken to the patient himself.
--- NOTE | 2021-08-31 14:02 | NUR ---
patient refused to go home and informed dr. berg- sophie acknowledged. patient request to talk to supervisor dimension warehouse and supervisor dimension warehouse notified
--- NOTE | 2021-08-31 14:37 | NUR ---
patient refused to go home and stated her son unable to care for her at this time and was upset because of morphine discontinued by dr. berg. dr. berg gave patient a one time percocet and refused to give patient another type of pain medication other than tylenol. patient request to data warehouse developer and was informed by data warehouse developer to notify dr. berg patient requesting a different doctor.notified dr. berg and he acknowledged
--- NOTE | 2021-08-31 15:07 | NUR ---
spoken to housekeeping supervisor hotel notifying dr. berg and informed her that dr. berg will not order narcotic medicine and that patient can be leave the hospital tommorrow morning. attempted to spoke to patient, patient sleeping comfortably. will talk to her later when she wakes up
--- NOTE | 2021-08-31 15:21 | NUR ---
dr. berg reported that she spoken earlier to daphnie of patient home health services for discharge. unable to get in touch with daphnie and attempted several times
[2021-08-31 18:56] LABS: BUN/CREATININE RATIO 21 (0-10)
[2021-09-01 06:30] LABS: RED BLOOD COUNT 3.05 M/UL (4.00-5.10)
[2021-09-01] MEDS ORDERED: ACETAMINOPHEN325 MG PO (08:18)
--- NOTE | 2021-09-01 10:47 | NUR ---
CALLED REPORT TO ASTRID AT [facility] AT [phone] AT [phone].
[2021-09-02 08:14] LABS: IRON BIND.CAP.(TIBC) 155 ug/dL (250-450); IRON SATURATION 23 % (15-55); IRON, SERUM 36 ug/dL (27-159); UIBC 119 ug/dL (131-425)
== END 2021-09-01 11:31 | disposition home or self-care (01) | DRG 74 ==
LOC: ER1 01:37 → MED SURG 4 05:44 → CDU 05:44 → MED SURG 4 13:21
PROVIDERS: Emergency Medicine; Internal Medicine; ADMIT Internal Medicine
DX: E11.43 Type 2 diabetes mellitus with diabetic autonomic (poly)neuropathy (principal); M84.454A Pathological fracture, pelvis, initial encounter for fracture; Z20.822 Contact with and (suspected) exposure to COVID-19; E44.0 Moderate protein-calorie malnutrition; I10 Essential (primary) hypertension; F17.210 Nicotine dependence, cigarettes, uncomplicated; K31.84 Gastroparesis; E87.6 Hypokalemia; E11.40 Type 2 diabetes mellitus with diabetic neuropathy, unspecified; I16.0 Hypertensive urgency; E11.65 Type 2 diabetes mellitus with hyperglycemia; E88.09 Other disorders of plasma-protein metabolism, not elsewhere classified; E83.42 Hypomagnesemia; E86.0 Dehydration; Z79.4 Long term (current) use of insulin; Z90.49 Acquired absence of other specified parts of digestive tract; Z83.3 Family history of diabetes mellitus; Z68.22 Body mass index [BMI] 22.0-22.9, adult
CPT/HCPCS: 36415; 80048; 80053; 82009; 82800; 82962; 83540; 83550; 83735; 83880; 84100; 84132; 85025; 85027; 96361; 96372; 96374; 99285; C9113; J1650; J2270; J2550

== ENCOUNTER 2021-09-03 21:40 | Emergency (ER) | payer OTHER ==
[~2021-09-03 21:40] MED LIST changes: +ACETAMINOPHEN325 MG PO; +LACTULOSE10 GM/15 M PO
[2021-09-03 23:06] LABS: HEMOGLOBIN 10.5 gm/dl (12.3-15.3); WHITE BLOOD COUNT 5.2 K/UL (4.5-11.0)
[2021-09-03 23:33] LABS: RED BLOOD COUNT 3.56 M/UL (4.00-5.10)
[2021-09-03 23:38] LABS: BUN/CREATININE RATIO 33 (0-10)
== END 2021-09-04 09:44 | disposition home or self-care (01) ==
LOC: ER1 21:40
PROVIDERS: Physician Assistant
DX: R10.2 Pelvic and perineal pain (principal); G89.29 Other chronic pain; S32.512D Fracture of superior rim of left pubis, subsequent encounter for fracture with routine healing; R60.0 Localized edema; I10 Essential (primary) hypertension; E11.43 Type 2 diabetes mellitus with diabetic autonomic (poly)neuropathy; F17.200 Nicotine dependence, unspecified, uncomplicated; W19.XXXD Unspecified fall, subsequent encounter
CPT/HCPCS: 80053; 82150; 82962; 83605; 83690; 85025; 96374; 96375; 99284; J2270; J2550; Q9967

== ENCOUNTER 2021-09-30 15:11 | Emergency (ER) | payer OTHER ==
[2021-09-30 16:19] LABS: HEMOGLOBIN 11.9 gm/dl (12.3-15.3); RED BLOOD COUNT 4.13 M/UL (4.00-5.10); WHITE BLOOD COUNT 6.8 K/UL (4.5-11.0)
[2021-09-30 17:59] LABS: BUN/CREATININE RATIO 25 (0-10)
[2021-09-30] MEDS ORDERED: PHENERGAN 12.12.5 M1 PO (18:09)
== END 2021-09-30 18:35 | disposition home or self-care (01) ==
LOC: ER1 15:11
PROVIDERS: Preventive Medicine Occupational Medicine
DX: E11.43 Type 2 diabetes mellitus with diabetic autonomic (poly)neuropathy (principal); K31.84 Gastroparesis; I10 Essential (primary) hypertension; I25.10 Atherosclerotic heart disease of native coronary artery without angina pectoris; Z20.822 Contact with and (suspected) exposure to COVID-19
CPT/HCPCS: 0240U; 71045; 80053; 82140; 83690; 85025; 85652; 86140; 93005; 96374; 96375; 99285; G0480; J1170; J2550; Q9967

== ENCOUNTER 2021-10-02 01:07 | Emergency (ER) | payer OTHER ==
[~2021-10-02 01:07] MED LIST changes: +PHENERGAN 12.12.5 M1 PO
[2021-10-02 01:52] LABS: HEMOGLOBIN 11.4 gm/dl (12.3-15.3); RED BLOOD COUNT 4.04 M/UL (4.00-5.10); WHITE BLOOD COUNT 6.1 K/UL (4.5-11.0)
[2021-10-02] MEDS ORDERED: IBUPROFEN800 MG PO (02:19)
[2021-10-02] MEDS ORDERED: ONDANSETRON ODT4 MG SL (02:19)
[2021-10-02 02:20] LABS: BUN/CREATININE RATIO 21 (0-10)
[2021-10-02] MEDS ORDERED: K-TAB ER20 MEQ PO (02:50)
[2021-10-02] MEDS ORDERED: LASIX40 MG PO (02:50)
[2021-10-02] MEDS ORDERED: HYDROCODON-ACE1 EAC4 PO (02:52)
== END 2021-10-02 03:15 | disposition home or self-care (01) ==
LOC: ER1 01:07
PROVIDERS: Physician Assistant
DX: S32.512A Fracture of superior rim of left pubis, initial encounter for closed fracture (principal); R60.0 Localized edema; E87.6 Hypokalemia; E11.9 Type 2 diabetes mellitus without complications; I11.0 Hypertensive heart disease with heart failure; I50.9 Heart failure, unspecified; Z90.89 Acquired absence of other organs; Z90.49 Acquired absence of other specified parts of digestive tract; Z90.710 Acquired absence of both cervix and uterus; Z88.8 Allergy status to other drugs, medicaments and biological substances; F17.200 Nicotine dependence, unspecified, uncomplicated; X58.XXXA Exposure to other specified factors, initial encounter
CPT/HCPCS: 71045; 72170; 73552; 80053; 82550; 82553; 83880; 84484; 85025; 93005; 99284

== ENCOUNTER 2021-10-08 23:13 | Emergency (ER) | payer OTHER ==
[~2021-10-08 23:13] MED LIST changes: +IBUPROFEN800 MG PO; +LASIX40 MG PO; +ONDANSETRON ODT4 MG SL
[2021-10-09 05:45] LABS: HEMOGLOBIN 10.6 gm/dl (12.3-15.3); RED BLOOD COUNT 3.66 M/UL (4.00-5.10); WHITE BLOOD COUNT 5.4 K/UL (4.5-11.0)
[2021-10-09] MEDS ORDERED: K-TAB ER20 MEQ PO (06:52)
== END 2021-10-09 10:00 | disposition home or self-care (01) ==
LOC: ER1 23:13
PROVIDERS: Emergency Medicine
DX: E87.6 Hypokalemia (principal); E11.40 Type 2 diabetes mellitus with diabetic neuropathy, unspecified; Z90.710 Acquired absence of both cervix and uterus; Z90.49 Acquired absence of other specified parts of digestive tract; F17.210 Nicotine dependence, cigarettes, uncomplicated
CPT/HCPCS: 80053; 82009; 83605; 83690; 84703; 85025; 96365; 96375; 96376; 99284; J1200; J1885; J2270; J2550; J2765; J3480

== ENCOUNTER 2021-10-14 15:38 | Emergency (ER) | payer OTHER ==
[2021-10-14 17:25] LABS: HEMOGLOBIN 10.7 gm/dl (12.3-15.3); RED BLOOD COUNT 3.69 M/UL (4.00-5.10); WHITE BLOOD COUNT 6.1 K/UL (4.5-11.0)
[2021-10-15] MEDS ORDERED: POTASSIUM CHLO20 ME1 PO (04:54)
[2021-10-15] MEDS ORDERED: PROTONIX 40 MG40 M1 PO (04:54)
== END 2021-10-15 08:07 | disposition home or self-care (01) ==
LOC: ER1 15:38
DX: E11.65 Type 2 diabetes mellitus with hyperglycemia (principal); E87.6 Hypokalemia; D64.9 Anemia, unspecified; R19.7 Diarrhea, unspecified; E11.40 Type 2 diabetes mellitus with diabetic neuropathy, unspecified; F17.200 Nicotine dependence, unspecified, uncomplicated; Z88.1 Allergy status to other antibiotic agents
CPT/HCPCS: 80053; 81001; 83690; 85025; 96365; 96375; 99284; J2270; J3480; Q9967

== ENCOUNTER 2021-10-20 18:32 | Emergency (ER) | payer OTHER ==
[~2021-10-20 18:32] MED LIST changes: +PROTONIX 40 MG40 M1 PO
[2021-10-20 19:37] LABS: HEMOGLOBIN 10.8 gm/dl (12.3-15.3); RED BLOOD COUNT 3.67 M/UL (4.00-5.10); WHITE BLOOD COUNT 5.5 K/UL (4.5-11.0)
[2021-10-20] MEDS ORDERED: PHENERGAN 12.12.5 MG PR (22:39)
== END 2021-10-21 | disposition home or self-care (01) ==
LOC: ER1 18:32
PROVIDERS: Physician Assistant
DX: R10.13 Epigastric pain (principal); R11.2 Nausea with vomiting, unspecified; I11.0 Hypertensive heart disease with heart failure; I50.9 Heart failure, unspecified; E11.43 Type 2 diabetes mellitus with diabetic autonomic (poly)neuropathy; K31.84 Gastroparesis; F17.210 Nicotine dependence, cigarettes, uncomplicated; Z88.8 Allergy status to other drugs, medicaments and biological substances
CPT/HCPCS: 80053; 81001; 82550; 82553; 82962; 83690; 84484; 85025; 96361; 96374; 96375; 96376; 99284; J2765

== ENCOUNTER 2021-10-28 08:27 | Inpatient (IN) | payer OTHER ==
[~2021-10-28] VITALS: Ht 149.9 cm; Wt 69.6 kg
[~2021-10-28 08:27] MED LIST changes: +LEVEMIR100 UNIT/1 SQ; +PHENERGAN 12.12.5 MG PR
[2021-10-28 09:11] LABS: HEMOGLOBIN 9.7 gm/dl (12.3-15.3); RED BLOOD COUNT 3.28 M/UL (4.00-5.10); WHITE BLOOD COUNT 4.9 K/UL (4.5-11.0)
[2021-10-28] MEDS ORDERED: ATORVASTATIN CA40 MG PO (14:09)
[2021-10-28] MEDS ORDERED: LEVEMIR100 UNIT/1 SQ (14:09)
[2021-10-28] MEDS ORDERED: PROMETHAZINE12.5 M1 PO (14:10)
[2021-10-28] MEDS ORDERED: PROTONIX 40 MG40 M1 PO (14:10)
[2021-10-28] MEDS ORDERED: LOPRESSOR50 MG PO (14:10)
[2021-10-28] MEDS ORDERED: CLONIDINE HCL0.1 MG PO (14:11)
[2021-10-29 07:59] LABS: HEMOGLOBIN 7.4 gm/dl (12.3-15.3); RED BLOOD COUNT 2.49 M/UL (4.00-5.10)
[2021-10-30 07:10] LABS: BUN/CREATININE RATIO 28 (0-10)
[2021-11-01 07:09] LABS: WHITE BLOOD COUNT 5.2 K/UL (4.5-11.0)
[2021-11-01 07:10] LABS: RED BLOOD COUNT 2.05 M/UL (4.00-5.10)
[2021-11-01 07:28] LABS: HEMOGLOBIN 5.9 gm/dl (12.3-15.3)
[2021-11-01 08:12] LABS: HBSAG SCREEN Negative (Negative); HCV AB <0.1 (0.0-0.9); HEP B CORE AB, TOT Negative (Negative)
[2021-11-01 10:12] LABS: ANTISTREPTOLYSIN O AB <20.0 IU/mL (0.0-200.0); COMPLEMENT C3, SERUM 126 mg/dL (82-167); COMPLEMENT C4, SERUM 22 mg/dL (12-38)
[2021-11-01 14:12] LABS: ANTI-DSDNA ANTIBODIES <1 IU/mL (0-9)
[2021-11-02 05:53] LABS: WHITE BLOOD COUNT 6.5 K/UL (4.5-11.0)
[2021-11-02 05:54] LABS: HEMOGLOBIN 8.7 gm/dl (12.3-15.3); RED BLOOD COUNT 2.94 M/UL (4.00-5.10)
[2021-11-03 02:51] LABS: HEMOGLOBIN 10.6 gm/dl (12.3-15.3)
[2021-11-03 02:53] LABS: RED BLOOD COUNT 3.55 M/UL (4.00-5.10); WHITE BLOOD COUNT 12.7 K/UL (4.5-11.0)
[2021-11-04 06:30] LABS: HEMOGLOBIN 8.6 gm/dl (12.3-15.3); RED BLOOD COUNT 2.93 M/UL (4.00-5.10); WHITE BLOOD COUNT 9.5 K/UL (4.5-11.0)
[2021-11-04 08:13] LABS: ATYPICAL PANCA <1:20 titer (Neg:<1:20); CYTOPLASMIC (C-ANCA) <1:20 titer (Neg:<1:20); PERINUCLEAR (P-ANCA) <1:20 titer (Neg:<1:20)
[2021-11-04 14:14] LABS: A/G RATIO 1.5 (0.7-1.7); ALBUMIN 2.8 g/dL (2.9-4.4); ALPHA-1-GLOBULIN 0.2 g/dL (0.0-0.4); ALPHA-2-GLOBULIN 0.9 g/dL (0.4-1.0); BETA GLOBULIN 0.6 g/dL (0.7-1.3); GAMMA GLOBULIN 0.2 g/dL (0.4-1.8); GLOBULIN, TOTAL 1.9 g/dL (2.2-3.9); IMMUNOGLOBULIN A, QN, SERUM 82 mg/dL (87-352); IMMUNOGLOBULIN G, QN, SERUM 148 mg/dL (586-1602); IMMUNOGLOBULIN M, QN, SERUM 29 mg/dL (26-217); M-SPIKE Not Observed g/dL (Not Observed); PROTEIN, TOTAL, SERUM 4.7 g/dL (6.0-8.5)
[2021-11-05 06:01] LABS: HEMOGLOBIN 8.5 gm/dl (12.3-15.3); RED BLOOD COUNT 2.81 M/UL (4.00-5.10); WHITE BLOOD COUNT 8.9 K/UL (4.5-11.0)
[2021-11-06 06:47] LABS: HEMOGLOBIN 8.3 gm/dl (12.3-15.3); RED BLOOD COUNT 2.82 M/UL (4.00-5.10); WHITE BLOOD COUNT 9.5 K/UL (4.5-11.0)
[2021-11-07 06:41] LABS: HEMOGLOBIN 7.7 gm/dl (12.3-15.3); RED BLOOD COUNT 2.61 M/UL (4.00-5.10); WHITE BLOOD COUNT 7.9 K/UL (4.5-11.0)
[2021-11-07] MEDS ORDERED: TRAMADOL HCL50 MG PO (11:10)
[2021-11-07] MEDS ORDERED: BUMETANIDE1 MG PO (11:10)
[2021-11-07] MEDS ORDERED: LOPRESSOR 50 MG50 MG PO (11:10)
--- NOTE | 2021-11-07 14:16 | NUR ---
ATTEMPTED TO CALL REPORT TO [facility], LEFT VOICEMAIL WITH ANSWERING SERVICE.
--- NOTE | 2021-11-07 14:24 | NUR ---
REPORT TO [facility] AT THIS TIME.
--- NOTE | 2021-11-07 15:49 | NUR ---
PT LEAVES VIA TRANSPORT.
== END 2021-11-07 15:50 | disposition home health service (06) | DRG 698 ==
LOC: ER1 08:27 → CDU 12:13 → MED SURG 4 12:13
PROVIDERS: Emergency Medicine; Internal Medicine; Internal Medicine Nephrology; Physician Assistant Medical; ADMIT Internal Medicine
PROC: B24BZZZ Ultrasonography of Heart with Aorta (ICD-10-PCS; 2021-10-29)
PROC: 30233N1 Transfusion of Nonautologous Red Blood Cells into Peripheral Vein, Percutaneous Approach (ICD-10-PCS; principal; 2021-11-01)
DX: N05.9 Unspecified nephritic syndrome with unspecified morphologic changes (principal); I50.33 Acute on chronic diastolic (congestive) heart failure; J69.0 Pneumonitis due to inhalation of food and vomit; S32.10XA Unspecified fracture of sacrum, initial encounter for closed fracture; S32.502A Unspecified fracture of left pubis, initial encounter for closed fracture; R18.8 Other ascites; I13.0 Hypertensive heart and chronic kidney disease with heart failure and stage 1 through stage 4 chronic kidney disease, or unspecified chronic kidney disease; J96.11 Chronic respiratory failure with hypoxia; E11.43 Type 2 diabetes mellitus with diabetic autonomic (poly)neuropathy; N17.9 Acute kidney failure, unspecified; K31.84 Gastroparesis; E11.40 Type 2 diabetes mellitus with diabetic neuropathy, unspecified; D63.1 Anemia in chronic kidney disease; E88.09 Other disorders of plasma-protein metabolism, not elsewhere classified; E11.319 Type 2 diabetes mellitus with unspecified diabetic retinopathy without macular edema; F17.210 Nicotine dependence, cigarettes, uncomplicated; R16.1 Splenomegaly, not elsewhere classified; E11.22 Type 2 diabetes mellitus with diabetic chronic kidney disease; N18.30 Chronic kidney disease, stage 3 unspecified; E11.65 Type 2 diabetes mellitus with hyperglycemia; Z91.81 History of falling; Z88.8 Allergy status to other drugs, medicaments and biological substances; Z90.49 Acquired absence of other specified parts of digestive tract; Z90.89 Acquired absence of other organs; Z98.890 Other specified postprocedural states; Z80.0 Family history of malignant neoplasm of digestive organs; Z79.899 Other long term (current) drug therapy; Z79.4 Long term (current) use of insulin
CPT/HCPCS: ECHO; 36415; 71045; 74018; 80048; 80053; 80076; 81001; 82550; 82553; 82570; 82728; 82784; 82962; 83036; 83520; 83540; 83550; 83690; 83735; 83880; 83883; 84155; 84156; 84165; 84484; 85025; 85027; 85045; 86038; 86060; 86160; 86162; 86225; 86256; 86334; 86704; 86706; 86708; 86803; 86850; 86900; 86901; 86920; 87340; 93005; 93306; 96374; 96375; 96376; 97110-GP-CQ; 97162; 97530; 97530-GP-CQ; 99285; G0378; J0360; J1170; J1205; J1335; J1650; J1940; J2270; J2550; P9016; P9047